=== PATIENT | female | born 1970 | race Caucasian/White ===

== ENCOUNTER 2024-09-25 21:10 | Inpatient (IN) | payer BC, SELFPAY ==
[2024-09-25] VITALS (8 sets, daily range): BP systolic 107–136; BP diastolic 56–122; BMI 25.3
[2024-09-25 13:57] LABS: % Basophils 0.8 % (0-2); % Eosinophils 1.3 % (0-6); % Immature Granulocytes 0.2 % (0-0.5); % Lymphocytes 25.3 % (20.5-51.1); % Monocytes 7.5 % (1.7-9.3); % Neutrophils 64.9 % (42.2-75.2); Absolute Basophils 0.1 10^3/uL (0-0.2); Absolute Eosinophils 0.1 10^3/uL (0-0.7); Absolute Lymphocytes 1.6 10^3/uL (1.2-3.4); Absolute Monocytes 0.5 10^3/uL (0.1-0.6); Absolute Neutrophils 4.1 10^3/uL (1.4-6.5); Hematocrit 39.9 % (37.0-47.0); Hemoglobin 13.9 g/dL (12.0-16.0); Mean Corp Hgb Conc. 34.8 g/dL (33.0-37.0); Mean Corpuscular Hgb 30.2 pg (27.0-31.0); Mean Corpuscular Volume 86.6 fL (81.0-99.0); Mean Platelet Volume 9.1 fL (7.4-10.4); Nucleated Red Blood Cells % 0 %; Platelet Count 250 10^3/uL (130-400); Red Blood Cell Count 4.61 10^6/uL (4.20-5.40); Red Cell Dist. Width 12.7 % (11.5-14.5); White Blood Cell Count 6.4 10^3/uL (4.8-10.8)
[2024-09-25 14:10] LABS: ALT (SGPT) 20 U/L (0-35); AST (SGOT) 28 U/L (14-36); Albumin 4.4 g/dl (3.5-5.0); Alkaline Phosphatase 77 U/L (38-126); Blood Urea Nitrogen 15 mg/dl (7-17); Calcium 9.8 mg/dl (8.4-10.2); Carbon Dioxide 24 mmol/L (22-30); Chloride 104 mmol/L (98-107); Glucose 122 mg/dl (70-99); Potassium 3.9 mmol/L (3.5-5.1); Sodium 138 mmol/L (135-145); Total Bilirubin 0.5 mg/dl (0.2-1.3); Total Protein 6.7 g/dl (6.3-8.2); eGFR > 60.00
[2024-09-25 14:21] LABS: Troponin I < 0.012 ng/ml
--- NOTE | 2024-09-25 15:49 | ED.GENMED ---
History of Present Illness
General
Chief Complaint: Chest Pain
Source: patient and spouse
Exam Limitations: none
Time Seen by Provider: 09/25/24 15:30
Nursing documentation reviewed up to this point in time: agreed with
History of Present Illness
History of Present Illness:
53-year-old female with no reported chronic medical issues presents to the emergency with her for evaluation of chest discomfort. Patient reports symptoms have been ongoing for the past 5 weeks and today were more severe than usual. She
describes a pinching sensation in the left chest that is associated with a fluttering sensation and lightheadedness. She says that it has happened when she pushes off at the gym and typically resolves with decreasing her activity level or resting
after a few minutes. She says that today she had an episode while she was doing just very light activity�she says she was vacuuming and had an episode that lasted for about 30 minutes which is much longer than any previous episodes and was more
intense. Again she had some associated lightheadedness but there is no syncope. She denies any nausea, vomiting, diaphoresis. She denies any recent illness, no recent cough, fevers, chills. She denies any swelling or pain in the legs. She
denies any other complaints. She denies any personal or family history of cardiac issues. She says she is never seen a helicopter pilot instructor.
Review of Systems
Review of Systems
All Other Systems: ROS reviewed and negative except as documented in HPI and ROS
Constitutional: Denies fever
Respiratory: Denies trouble breathing
Cardiac: Reports chest pain and palpitations ('Fluttering'); Denies syncope
ABD/GI: Denies abdominal pain, nausea or vomiting
: Denies flank pain
Musculoskeletal: Denies edema, neck pain or back pain
Neurological: Denies dizzy or headache
Phy Exam
Physical Exam
Physical Exam:
General: Awake, alert, oriented x3; no acute distress
Head: Normocephalic, atraumatic
Eyes: Conjunctiva normal, sclera anicteric
Throat: Airway intact, handling secretions
Neck: Trachea midline, supple without meningismus
Lungs: Clear to auscultation bilaterally, no wheezing, rales, rhonchi
Heart: Regular rate and rhythm, no murmurs, gallops, or rubs
Abd: Soft, non distended, nontender
Neuro: No gross deficits
Skin: no rash
Extremities: No edema in extremities, equal pulses in all extremities
Scores
Heart Failure Risk
Heart Failure Risk Score: Not Applicable
Heart Score for Chest Pain Patients
STEMI patient?: No
History: Moderately Suspicious
ECG: Normal
Age: >45 - <65 years
Risk Factors: No Risk Factors
Troponin: </= Normal Limit
Heart Score for Chest Pain Patients: 2
Heart Score Risk: 2.5% MACE over next 6 weeks
Withdrawal Assessment of Alcohol
Withdrawal Assessment Completed?: Not applicable
Course
Orders/Labs/Results
Orders:
Orders
09/25/24 13:24
EKG [Electrocardiogram (*1)] Urgent
Reason for Study: Chest Pain
EKG- Treatment ONCE
09/25/24 13:43
Complete Blood Count/With Diff Urgent
Comprehensive Metabolic Panel Urgent
Troponin I Urgent
09/25/24 15:38
CR Chest - 2 Views Urgent
Comment:
Reason For Exam: chest pain
09/25/24 15:49
CARDIOLOGY CONSULT Urgent
Consulting Provider: Zak Suarez
Was physician already notified: Yes
09/25/24 16:06
Echo 2D MMode Color/Doppler Routine
Reason for Study: Chest pain, lightheaded
09/25/24 16:15
D-Dimer Urgent
Troponin I Urgent
Abnormal Lab Results
09/25/24
13:43
Glucose 122 H mg/dl
(70-99)
09/25/24 13:43
09/25/24 13:43
Vital Signs
Initial and Last Documented VS:
Initial Vital Signs
Temp Pulse Resp BP Pulse Ox
36.6 C 72 20 134/90 100
09/25/24 13:32 09/25/24 13:32 09/25/24 13:32 09/25/24 13:32 09/25/24 13:32
Last Documented Vital Signs
Temp Pulse Resp BP Pulse Ox
36.6 C 72 20 134/90 99
09/25/24 13:32 09/25/24 13:32 09/25/24 13:32 09/25/24 13:32 09/25/24 16:18
MDM/Problems Addressed
Differential Diagnosis Includes:
Unstable angina/ACS, paroxysmal dysrhythmia, PE, costochondritis
MDM/Problems Addressed:
53-year-old female presents to the emergency room for evaluation of chest discomfort. She says symptoms have come on with exertion over the past 5 weeks and resolved with decreased activity/rest; today came on with less exertion, or more intense
and lasted for longer period of time before resolving. Vitals here are normal. Physical exam as above. EKG shows sinus rhythm no acute ischemic changes. She had lab work sent in triage including a CBC and a CMP which were unremarkable. Her
initial troponin is negative. Can trend troponins. Check a D-dimer. Check chest x-ray. Will obtain serial repeat EKG. Case discussed with cardiology will plan for admission to hospitalist service for further evaluation and monitoring pending
rest of workup as above.
D-dimer negative. Chest x-ray shows no acute disease. Patient well-appearing with stable vitals on reassessment. Given escalating exertional symptoms will admit for trending of troponins, monitoring of symptoms and vital signs, cardiology
consultation and further evaluation as indicated. Case discussed with hospitalist for admission.
*Radiology
Radiology exam reviewed: preliminary read by ED provider and radiology read reviewed
*Pulse Oximetry
Patient hypoxic: no
*EKG
Interpreted by ED Provider?: Yes
Heart Rate: 63
Rate: normal
Rhythm: sinus
[place]: normal axis
Interval: normal interval
QRS Pattern: normal QRS
Ischemia: no ischemia
*Critical Care Note
Total Time (30-74mins, 75-104mins- exclusive of procedures): Not Applicable
Data Reviewed
Source: patient and spouse
Patient Management
Discussion with other providers: Hospitalist (Discussed with hospitalist) and Pack Out Operator (Discussed with cardiology)
Escalation/DeEscalation of care consider admission/obs:
Admission indicated
ED Attending Note
-
Portions of this chart may have been created with voice recognition software.� Occasional wrong word or��sound alike� substitutions may have occurred due to the inherent limitations of voice recognition software.
Discharge Plan
Departure
Admit to doctor: Jessica
Presentation/result/management discussed w/ accepting MD/DO: Hospitalist
Discharge Problem:
Chest pain
Interventions
Interventions:
*Risk Screen - Suicide Last Done: 09/25/24 13:32
*General Assessment Last Done: 09/25/24 16:15
*Neglect/Abuse Screening Last Done: 09/25/24 16:15
ED- Fall Risk Assessment Last Done: 09/25/24 16:15
*ED COVID-19 Vaccine History Last Done: 09/25/24 16:15
ED- Cardiac Assessment Last Done: 09/25/24 16:15
Discharge Date and Time
Print Language: UPPER SORBIAN
[2024-09-25 16:45] LABS: D-Dimer 0.28 ug/mlFEU (0.00-0.50)
[2024-09-25 16:56] LABS: Troponin I < 0.012 ng/ml
--- NOTE | 2024-09-25 17:15 | CON.CAR ---
Addendum entered and electronically signed by Zak Suarez MD 09/25/24 17:37:
I saw and examined the patient.
The LABORATORY PHLEBOTOMIST's note was reviewed and I agree with the note.
Comment: We will r/o [facility] and if does well we will progress to stress test. If stress is normal and we do reproduce symptoms we will arrange for a outpatient extended Holter.
Original Note:
Consultation
Consultation Request
Date/Time Consultation Requested: 09/25/2024 15:50
Date/Time Consultation Performed: 09/25/2024 16:30
Requesting Provider: Dr. Luis
Performing Provider: ESPERANZA Jensen for Dr. Suarez
Reason for Consultation: Chest pain
Medical History
-
Chief Complaint: Chest pain
History of Present Illness:
Shona Arechiga is a 53-year-old female without significant past medical history presented to the emergency department with a chief complaint of chest pain. She walks for exercise. Over the last 5 weeks she has been having chest pinching with an
associated fluttering sensation. Her most recent episode happened at the gym. She was on the treadmill with a slight incline and then had significant palpitations when her heart rate was in the 140s. She was on her third mile. She rested and
symptoms improved. She works as a professional process project engineer. Today while vacuuming she had presyncope. She had significant lightheadedness that lasted for about 30 minutes. She laid down and felt she was having issues processing information.
She also experienced her palpitations and chest pinching when this occurred. She is feeling well at the time of this consultation.
The patient had 2 healthy pregnancies without preeclampsia and gestational diabetes. She does not have a family history of premature coronary artery disease.
Past Medical History
Past Medical History: None
Past Surgical History: None
Social History
Tobacco: Non-Smoker
Alcohol: Occasional (About 4-5 beverages throughout the week)
Drug: None
Personal:
Living: With Family
Employment: Employed
Family History
Family History: Reviewed & Not Pertinent (Father due to myasthenia gravis. Mother alive and well in her 80s. Sibling and children alive and well.)
Allergies / Home Medications
Allergy/AdvReac Type Severity Reaction Status Date / Time
gentamicin Allergy Tongue Verified 09/25/24 13:34
Swelling
Review of Systems
-
History Source: Patient
All other systems: Negative unless noted
Constitutional: No Symptoms
EENT: No Symptoms
Respiratory: No Symptoms
Cardiac: No Symptoms
Abdomen/GI: No Symptoms
: No Symptoms
Musculoskeletal: No Symptoms
Skin: No Symptoms
Neurological: No Symptoms
Endocrine: No Symptoms
Hematologic/Lymphatic: No Symptoms
Physical Exam
Vital Signs
Temp Pulse Resp BP Pulse Ox
97.9 F 72 20 134/90 99
09/25/24 13:32 09/25/24 13:32 09/25/24 13:32 09/25/24 13:32 09/25/24 16:18
Lab Results
09/25/24 13:43
09/25/24 13:43
Troponin I < 0.012 ng/ml 09/25/24 16:15
Physical Exam
General: Well Developed, Well Nourished, No Apparent Distress and Comfortable
HEENT: Normocephalic, Anicteric and Moist Mucous Membranes
Respiratory: Clear and Non Labored Respirations
Cardiac: S1/S2 and Regular Rhythm
Breast: Deferred by me
GI: Soft, Non Tender, Non Distended and Normal Bowel Sounds
Rectal: Deferred by Provider
Genito-urinary: No Costovertebral Tender
Musculoskeletal: No Clubbing, No Cyanosis and No Edema
Skin: Warm and Dry
Neuro: AO x 3
Hematologic/Lymphatic: No Lymphadenopathy
Psych: Calm
Impression / Plan
-
IMPRESSION/PLAN: 53F without significant past medical history presents with chest pain, presyncope, and palpitations
Chest pain
Presyncope
Palpitations
-Describes it as a pinching sensation in her left anterior chest
-Palpitations are most noticeable when heart rate is around 140 bpm
-Presyncope, this was exertional with vacuuming today
-Troponin < 0.012
-Follow telemetry
-Echocardiogram
-Stress echocardiogram in a.m.
Data Reviewed
-
EKG: Report Reviewed by me
[2024-09-25] MEDS: LOW STRENGTH ASPIRIN 162 MG PO (17:59)
--- NOTE | 2024-09-25 20:13 | HPS.HSE ---
Family Physician
-
Family Physician: Emy Jeff
Chief Complaint
-
chest pain
History of Present Illness
53-year-old woman with no PMH presents with chest discomfort. Symptoms have been ongoing for the past 5 weeks and today were more severe than usual. She describes a pinching sensation in the left chest that is associated with a fluttering
sensation and lightheadedness. She says that it has happened when she 'pushes off' while walking at the gym and typically resolves with decreasing her activity level or resting after a few minutes. Today's episode was when she was doing just very
light activity�vacuuming and the episode that lasted for about 30 minutes which is longer than any previous episodes. Some associated lightheadedness but no syncope. She denies any nausea, vomiting, diaphoresis, recent illness, no recent cough,
fevers, chills, swelling or pain in the legs, any other complaints. She denies any personal or family history of cardiac issues. She says she is never seen a electrical project manager.
Medical History
Past Medical History
Past Medical History: Reports None
Past Surgical History: Reports None
Social History
Tobacco: Non-smoker
Alcohol: Occasional
Drug: None
Personal:
Living: With Family
Employment: Employed
Family History
Family History: Not pertinent
Allergies / Home Medications
Allergies reflects when Allergies were last updated in [employer]
Home Medications with original date entered in [employer]
Allergy/Medication List:
Allergies
Allergy/AdvReac Type Severity Reaction Status Date / Time
gentamicin Allergy Tongue Verified 09/25/24 13:34
Swelling
Home Medications
No Meds [No Current Medications] 09/25/24
Review of Systems
-
History Source: Patient
A 12 point ROS was completed and negative except as noted: Yes
Physical Exam
Vital Signs
Vital Signs
Temp Pulse Resp BP Pulse Ox
98.4 F 72 25 107/61 96
09/25/24 19:00 09/25/24 20:00 09/25/24 20:00 09/25/24 20:00 09/25/24 20:00
Physical Exam
General: Well Developed, Well Nourished, No Apparent Distress, Comfortable and Conversant
HEENT: NormoCephalic, Moist mucous membranes, Atraumatic, Nose Appears Normal and Ears Appear Normal
Respiratory: Clear
Cardiac: S1/S2 and Regular Rhythm
GI: Soft, Non Tender and Non Distended
Musculoskeletal: No Clubbing, No Cyanosis and No Edema
Skin: Warm and Dry; No Rash or Jaundice
Neuro: Awake, Alert, Oriented and AO x 3
Psych: Calm
Laboratory Results
-
09/25/24 13:43
09/25/24 13:43
Laboratory Results
Total Bilirubin 0.5 mg/dl (0.2-1.3) 09/25/24 13:43
AST 28 U/L (14-36) 09/25/24 13:43
ALT 20 U/L (0-35) 09/25/24 13:43
Alkaline Phosphatase 77 U/L (38-126) 09/25/24 13:43
Troponin I < 0.012 ng/ml 09/25/24 16:15
Data Reviewed
-
Lab Data: Labs Reviewed by me
Impression/Plan
-
IMPRESSION:
Healthy 53 woman with atypical chest pain. CXR and ECG unremarkable. First troponin neg.
PLAN:
1. Chest pain
CATRACHITA
Tele
Stress echo in am
Cardiology consulted
This may be musculoskeletal in nature, potentially a bulging disk in her thorax.
Full code
VCD for DVTp
[2024-09-25 23:43] LABS: Troponin I 0.017 ng/ml
--- NOTE | 2024-09-26 00:17 | PTCARENOTE ---
Pt received as admission from ED. Admission assessment completed as documented and pt oriented to room. Tele reading sinus steffanie with HR 50s. Pt denies pain and dizziness at this time. EKG and labs completed per orders. Plan of care discussed
regarding stress test in AM and pts questions answered. Ambulating independently in room without difficulty. Pt offers no concerns at this time. Call ovalle within reach. Plan of care ongoing.
--- NOTE | 2024-09-26 02:07 | DOWNTIME ---
There was a [employer] Downtime on 09/26/2024 from 0100 to 09/26/2023 at 0205 . Downtime documentation of patient's care, including medication administrations, has been reconciled in the electronic record per guidelines. Refer to the
patient's paper chart under the miscellaneous tab to see printed paper medication records and downtime forms.
[2024-09-26 02:22] VITALS: BP 110/73
[2024-09-26 02:33] VITALS: BMI 24.8
[2024-09-26 03:23] LABS: Troponin I < 0.012 ng/ml
[2024-09-26 05:49] LABS: Hematocrit 38.6 % (37.0-47.0); Hemoglobin 13.3 g/dL (12.0-16.0); Mean Corp Hgb Conc. 34.5 g/dL (33.0-37.0); Mean Corpuscular Volume 87.1 fL (81.0-99.0); Mean Platelet Volume 9.2 fL (7.4-10.4); Platelet Count 220 10^3/uL (130-400); Red Blood Cell Count 4.43 10^6/uL (4.20-5.40); Red Cell Dist. Width 12.6 % (11.5-14.5); White Blood Cell Count 5.7 10^3/uL (4.8-10.8)
[2024-09-26 06:15] LABS: Troponin I < 0.012 ng/ml
[2024-09-26 06:31] LABS: Blood Urea Nitrogen 14 mg/dl (7-17); Calcium 9.2 mg/dl (8.4-10.2); Carbon Dioxide 24 mmol/L (22-30); Chloride 105 mmol/L (98-107); Estimated Creatinine Clearance 101 ml/min; Glucose 103 mg/dl (70-99); HDL Cholesterol 63 mg/dl; LDL Cholesterol, Calculated 76 mg/dl; Potassium 3.8 mmol/L (3.5-5.1); Sodium 137 mmol/L (135-145); Total Cholesterol 159 mg/dl (50-199); Triglyceride 104 mg/dl (10-149); Very Low Density Lipoprotein 20 mg/dl (0-30); eGFR > 60.00
[2024-09-26 07:39] VITALS: BP 116/68
--- NOTE | 2024-09-26 09:17 | W.PN.HOSP.TC ---
Today's Communication/Plan
-
possible d/c today pending results of echo and stress test
await cards input
Assessment / Plan
Assessment / Plan
pt is a 53 year old female
chest pain--troponin neg--does not appear cardiac--getting stress test and echo--await cards input--EKG without acute findings--will await results of studies
DVT proph
code status -- FULL CODE
Anticipated Discharge: Today
Subjective/Interval History
-
Date of Service: September 26, 2024
pt without chest pain but senses that something 'not right'
Objective Data
-
Labs:
Laboratory Results
09/26/24
05:39
WBC 5.7
Hgb 13.3
Hct 38.6
Plt Count 220
Sodium 137
Potassium 3.8
Chloride 105
Carbon Dioxide 24
BUN 14
Creatinine 0.6
Glucose 103 H
Calcium 9.2
Vital Signs:
max temp for 24 hours
09/25/24
19:00
Temp 98.4 F
Vital Signs
Temp Pulse Resp BP Pulse Ox
98.6 F 59 20 116/68 99
09/26/24 07:36 09/26/24 08:00 09/26/24 07:36 09/26/24 07:39 09/26/24 07:36
Review of Systems
-
All other systems: Reviewed and negative
Physical Exam
-
General: Well Developed, Well Nourished and No Apparent Distress
HEENT: Normocephalic and Atraumatic; Negative Oxygen
Respiratory: Clear to Auscultation and Wheezes; Negative Rhonchi
Cardiac: Regular Rhythm and S1/S2; Negative Murmur
GI: Soft, Nontender, Nondistended and Normal Bowel Sounds
Musculoskeletal: No Clubbing, No Cyanosis and No Edema
Neuro: Awake and Alert
[2024-09-26 09:51] LABS: Glycohemoglobin (HgbA1c) 5.3 % (4.0-5.6)
--- NOTE | 2024-09-26 10:12 | PTCARENOTE ---
Pt AOx3, no complaints of pain or discomfort. VSS, SR on tele monitor. Plan for stress test this AM, NPO since midnight. Independent OOB. Call ovalle within reach.
--- NOTE | 2024-09-26 10:52 | W.PN.CD ---
Today's Communication / Plan
-
Stress echocardiogram today
-if normal, will arrange for 2 week outpatient monitor and follow up with us
Impression / Plan
-
IMPRESSION/PLAN: 53F without significant past medical history presents with chest pain, presyncope, and palpitations
Chest pain
Presyncope
Palpitations
-Describes it as a pinching sensation in her left anterior chest
-Palpitations are most noticeable when heart rate is around 140 bpm
-Presyncope, this was exertional with vacuum
-Troponin within normal limits
-no arrhythmia on telemetry
-Echocardiogram: normal study
-Stress echocardiogram today
-if normal, will arrange for 2 week outpatient monitor
Physical Exam
Vital Signs/Labs
Vital Signs
Temp Pulse Resp BP Pulse Ox
98.6 F 59 20 116/68 99
09/26/24 07:36 09/26/24 08:00 09/26/24 07:36 09/26/24 07:39 09/26/24 07:36
09/25/24 09/26/24 09/27/24
06:59 06:59 06:59
Actual Weight 68.6 kg
09/26/24 05:39
09/26/24 05:39
Triglycerides 104 mg/dl (10-149) 09/26/24 05:39
LDL Cholesterol, Calc 76 mg/dl 09/26/24 05:39
VLDL Cholesterol, Calc 20 mg/dl (0-30) 09/26/24 05:39
HDL Cholesterol 63 mg/dl 09/26/24 05:39
LAB Results
09/25/24 09/25/24 09/25/24
13:43 16:15 23:09
Troponin I < 0.012 < 0.012 0.017 D
09/26/24 09/26/24
02:28 05:39
Troponin I < 0.012 D < 0.012
Physical Exam
Constitutional: No acute distress
EENT: Moist mucous membranes
Cardiovascular: Rhythm & rate is regular, Pedal edema is absent, JVD pressure is normal and Systolic murmur absent
Respiratory: Respiratory effort normal and Lungs clear to auscul.
Neuro/Psych: AO x 3
Data Reviewed
-
Date of Service: September 26, 2024
EKG: Other (Tele: no arrhythmia)
Labs: Labs Reviewed by me
[2024-09-26 11:08] VITALS: BP 115/73
[2024-09-26 12:22] VITALS: BP 123/73
--- NOTE | 2024-09-26 13:16 | CM ---
Reviewed chart. Met with Mrs. Thomas to review discharge plans. She states prior to admission she resides with her spouse and children in a three story home with two steps to enter. She states she has a full flight of steps to get to
bedroom/full bathroom. She states she has a powder room on the first floor. She states prior to admission she was independent with ambulation and adls. She states she campbell snot have any DME in the home. She states she has a prescription plan and
uses [facility]. Medical work-up in progress. The discharge plan is to return home with her spouse and children when medically stable.
[2024-09-26 15:02] VITALS: BP 114/75
--- NOTE | 2024-09-26 16:02 | W.DCSUMMARY ---
Discharge Summary
Discharge Data
Date of Admission: 09/25/24
Date of Discharge: 09/26/24
Total time spent discharging patient (in min): 25
-
Pending Results: No
Hospital Course
Primary care physician : Emy Jeff
Principal Discharge diagnosis : Chest pain
Chronic Discharge diagnosis : None
Hospital Course : Patient is 53-year-old female without any medical history who presented with chest discomfort. She stated symptoms have been for the past 5 weeks but more severe recently than usual. She describes a pinching sensation in the left
chest along with a fluttering sensation and lightheadedness. She states that when she 'pushes off' while walking at the gym she gets this but it typically resolves with decreasing her activity. She was doing light vacuuming when the episode
started on the day of admission. Patient was admitted.
Problem #1: Chest pain. Patient's troponins were negative and this does not appear cardiac. Cardiology was consulted and the patient underwent a stress echocardiogram. That was normal. She has been cleared for discharge by cardiology to have a
2-week outpatient monitor. EKGs were done which were unremarkable. This likely is noncardiac in nature and will need further follow-up as an outpatient
Patient is stable for discharge home at this time. If there are questions regarding this dictation or her hospital stay, please not hesitate to call. Our office number is [phone].
Procedure findings :
STRESS ECHO
ECHO INTERPRETATION
Resting images revealed normal left ventricular size and function. No regional
wall motion abnormalities were seen. The estimated ejection fraction is 55-
60%..
Post-Exercise Echo Interpretation
On the immediate post exercise images, there is normal left ventricular
augmentation and wall thickening. No regional wall motion abnormalities are
seen. No evidence of myocardial ischemia. Estimated ejection fraction is 65-
70%.
Discharge Plan
-
Patient Disposition: Home (Routine Discharge)
Discharge Diagnosis/Procedures: Chest pain
Condition: Good
Diet: Low Cholesterol
Activity: As tolerated
Driving Restrictions: No driving for 24 hours
Bathing Restrictions: None
Others Tests: A conveyor monitor has been ordered for you. Placement will be arranged by the cardiology office. You should receive a call later today or tomorrow
Referrals:
Emy Jeff PA [Family Provider] - in less than 1 week
Mary Ram CRNP [Specified Professional Personl] - 10/24/24 8:00 am (Follow-up office visit after you complete 14 days of cardiac monitoring.)
Prescriptions:
No Action
No Current Medications
0
Discharge Orders:
Discharge Patient (As Directed); Ordered 09/26/24
Ordered By: Tereza Rey
Care Plan Goals
Care Plan Goals:
Problem: Readiness for enhanced knowledge related to diagnosis and treatment plan
Goal: Understand your diagnosis and treatment plan needs, including medications if applicable.
Instructions: Know your diagnosis, underlying causes and treatment plan options, including medications if applicable. Consult with your health care team to learn about your diagnosis and treatment plan, including medications if applicable.
Discharge Date and Time
Discharge Date/Time: 09/26/24 15:18
Print Language: NAMIBIAN
== END 2024-09-26 15:18 | disposition home or self-care (01) | DRG 313 ==
LOC: IVU 21:10
PROVIDERS: Emergency Medicine; ADMITTING PHYSICIAN Internal Medicine; ATTENDING PHYSICIAN Internal Medicine; CONSULT PHYSICIAN Internal Medicine Cardiovascular Disease; EMERGENCY PHYSICIAN Emergency Medicine; FAMILY PHYSICIAN Nurse Practitioner Adult Health
DX: R07.89 Other chest pain (principal); R00.2 Palpitations; R42 Dizziness and giddiness; Z88.1 Allergy status to other antibiotic agents
CPT/HCPCS: 93017; 71046; 80048; 80053; 80061; 83036; 84484; 85025; 85027; 85379; 93005; 93306; 93350; 99285